=== PATIENT | female | born 1995 | race Hispanic/Latino ===

== ENCOUNTER 2018-05-03 17:57 | Emergency (ER) | payer OTHER, MEDICAID ==
[2018-05-03 18:16] VITALS: BP 121/74
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
[2018-05-03 19:28] LABS: Basophils % (Auto) 0.3 % (0.0-1.8); Eosinophils # (Auto) 0.1 K/mm3 (0.0-0.4); Eosinophils % (Auto) 0.7 % (0.0-4.3); Hematocrit 34.8 % (30.3-42.9); Hemoglobin 11.5 gm/dl (10.1-14.3); Lymphocytes # (Auto) 2.9 K/mm3 (1.2-5.4); Lymphocytes % (Auto) 18.2 % (13.4-35.0); Mean Corpuscular HGB Conc 33 % (30-34); Mean Corpuscular Hemoglobin 32 pg (28-32); Mean Corpuscular Volume 95 fl (79-97); Monocytes # (Auto) 0.7 K/mm3 (0.0-0.8); Monocytes % (Auto) 4.6 % (0.0-7.3); Platelet Count 269 K/mm3 (140-440); Red Blood Count 3.65 M/mm3 (3.65-5.03); Red Cell Distribution Width 13.3 % (13.2-15.2)
[2018-05-03 19:43] LABS: Alanine Aminotransferase 8 units/L (7-56); BUN/Creatinine Ratio 12; Blood Urea Nitrogen 6 mg/dL (7-17); Hemolysis Index 2; Lipase 23 units/L (13-60)
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
[2018-05-03 21:40] LABS: Bilirubin,Urine NEG (Negative); Blood,Urine NEG (Negative); Color,Urine Yellow (Yellow); Mucus,Urine FEW /HPF; Protein,Urine <15 mg/dL mg/dL (Negative); Urobilinogen,Urine < 2.0 mg/dL (<2.0)
== END 2018-05-03 22:30 | disposition home or self-care (01) ==
LOC: MERGE 17:57 → ED 17:57
DX: O26.892 Other specified pregnancy related conditions, second trimester (principal); R10.9 Unspecified abdominal pain; Z3A.22 22 weeks gestation of pregnancy; V89.2XXA Person injured in unspecified motor-vehicle accident, traffic, initial encounter; Y93.89 Activity, other specified; Y92.89 Other specified places as the place of occurrence of the external cause; Y99.8 Other external cause status
CPT/HCPCS: 36415; 76816; 80053; 81001; 83690; 85025; 99284

== ENCOUNTER 2020-06-12 00:41 | Inpatient (IN) | payer MEDICAID ==
[2020-06-12] MEDS ORDERED: LACTATED RINGERS 1,000 ML IV ONE (01:42)
[2020-06-12] MEDS ORDERED: BUTORPHANOL 2 MG/1 ML INJ IV PRN (02:29)
[2020-06-12] MEDS ORDERED: TERBUTALINE 1 MG/1 ML INJ SUB-Q PRN (02:29)
[2020-06-12] MEDS ORDERED: TERBUTALINE 1 MG/1 ML INJ IVP PRN (02:29)
[2020-06-12] MEDS ORDERED: LIDOCAINE (2%) 20 MG/1 ML VIAL 20 ML MDV INFILTRATI ONE (02:29)
[2020-06-12] MEDS ORDERED: ePHEDrine SULFATE 50 MG/1 ML INJ IV PRN (02:29)
[2020-06-12] MEDS ORDERED: PROMETHAZINE 25 MG TAB PO PRN (02:29)
[2020-06-12] MEDS ORDERED: OXYTOCIN 20 UNIT/1000ML DRIP 20 UNITS/1,000 ML BAG IV SCH (03:00)
[2020-06-12 03:42] LABS: Hematocrit 26.9 % (30.3-42.9); Hemoglobin 9.2 gm/dl (10.1-14.3); Mean Corpuscular HGB Conc 34 % (30-34); Mean Corpuscular Volume 90 fl (79-97); Platelet Count 265 K/mm3 (140-440); Red Blood Count 2.98 M/mm3 (3.65-5.03)
[2020-06-12] MEDS: LACTATED RINGERS 1,000 ML IV SCH ×2 (03:48→11:39)
[2020-06-12] MEDS: AMPICILLIN/NS 1 GM/50 ML 1 GM/50 ML BAG IV SCH ×3 (04:55→18:12)
--- NOTE | 2020-06-12 06:02 | Ultrasound Report ---
Examination: Ultrasound Obstetrical Limited, 06/12/2020 INDICATION: Evaluate presentation. COMPARISON: None FINDINGS: There is a single living intrauterine with the head in the cephalic position. The hea rt rate is 125 beats per minute. IMPRESSION: Limited obstetrical ultrasound as detailed above. Signer Name: Cailin Jefferson MD Signed: 06/12/2020 5:57 AM Workstation Name: [id number]
--- NOTE | 2020-06-12 09:07 | History and Physical Report ---
History of Present Illness Date of examination: 06/12/20 Date of admission: 06/12/20 03:11 History of present illness: Patient presents to labor and delivery with complaints of spontaneous rupture of membranes approximately 10 PM on June 11. Triage nurse states the patient was grossly ruptured on exam and she could not detect presenting parts. Patient underwent ultrasound which verified that was in vertex position. Initially the patient gave the triage nurse EDC that was made her 35 weeks but upon obtaining her records the patient is at 33 weeks.\ Menstrual History Regularity: regular Menses every: 30 days Duration: 5 LMP: 09/22/2019 LMP reliability: definite LMP character: normal test type: urine test BC at conception: none Planned ? no EDC Calculations LMP: 06/28/2020 EDC Confirmation: 07/29/2020 Vital Signs: Patient Profile: 24 Years Old Female LMP: 09/22/2019 Height: 63 inches Weight: BMI: 25.86 Temp: 97.8 degrees F Medications: Medications were reviewed with the patient during this visit. Allergies: Allergies were reviewed with the patient during this visit. No Known Allergy. Last MP: 09/22/2019 Past History : 2 Term Births: 1 Premature Births: 0 Living Children: 1 Para: 0 Mult. Births: 0 Prev : 0 Prev. attempt? 0 Aborta: 0 Elect. Ab: 0 Spont. Ab: 0 Ectopics: 0 # 1 Delivery date: 08/23/2018 Weeks Gestation: 39 Delivery type: Vaginal Anesthesia type: epidural Delivery location: [facility] Infant Sex: female weight: 6.19 Comments: none Past Medical History: Negative Past Medical History Past Surgical History: negative Family History Summary: Other Family Member - Has No Family History of Uterine Cancer - Entered On: 02/29/2020 Other Family Member - Has No Family History of Stomach Cancer - Entered On: 02/29/2020 Other Family Member - Has No Family History of Spontaneous DVT-PE - Entered On: 02/29/2020 Other Family Member - Has No Family History of Small Bowel Cancer - Entered On: 02/29/2020 Other Family Member - Has No Family History of Pancreatic Cancer - Entered On: 02/29/2020 Other Family Member - Has No Family History of Ovarvian Cancer - Entered On: 02/29/2020 Other Family Member - Has No Family History of Kidney/Urinary Tract Cancer - Entered On: 02/29/2020 Other Family Member - Has No Family History of Colon Cancer - Entered On: 02/29/2020 Other Family Member - Has No Family History of Breast Cancer - Entered On: 02/18 Other Family Member - Has No Family History of Brain Cancer - Entered On: 02/29/2020 Other Family Member - Has No Family History of Biliary Tract Cancer - Entered On: 02/29/2020 General Comments - FH: DM - MGM, MGF Social History: single not working no ETOH/drugs/smoking Smoking History: Patient has never smoked. Risk Factors: Smoked Tobacco Use: Never smoker Dietary Counseling: pn yes Previous Tobacco Use: Signed On 03/06/2018 Smoked Tobacco Use: Never smoker Smokeless Tobacco Use: Never Passive smoke exposure: no Drug use: no HIV high-risk behavior: no Caffeine use: 1 drinks per day Previous Alcohol Use: Signed On 03/06/2018 Alcohol use: no Exercise: no Seatbelt use: 100 % Family History Risk Factors: Family History of MD in females < 65 years old: no Family History of MD in males < 55 years old: no Dietary Counseling: pn yes PAP Smear History: Date of Last PAP Smear: 03/20/2018 Past Medical History Abnormal PAP: negative Social Hx: single not working no ETOH/drugs/smoking Smoking History: Patient has never smoked. Infection History Hx of STD: gonorrhea Varicella/Chicken Pox Status: Unknown TB Risk: no Genetic History Congenital Heart Defect: Mom: no Dad: no Deb Disease: Mom: no Dad: no Thalassemia Mom: no Dad: no Neural Tube Defect Mom: no Dad: no Down's Syndrome Mom: no Dad: no Brent-Sachs Mom: no Dad: no Sickle Cell Disease/Trait Mom: no Dad: no Hemophilia Mom: no Dad: no Muscular Dystrophy Mom: no Dad: no Cystic Fibrosis Mom: no Dad: no [place] Chorea Mom: no Dad: no Mental Retardation Mom: no Dad: no Fragile X Mom: no Dad: no Other Genetic/Chromosomal Disorder Mom: no Dad: no Child w/other defect Mom: no Dad: no Enviromental Exposures Enviromental Exposures Reviewed Xray Exposure: no Medication, drug, or alcohol use since LMP: no Chemical/Other Exposure: no Exposure to Cat Liter: no Hx of Parvovirus (Fifth Disease): no Occupational Exposure to Children: other Current Allergies (reviewed today): No known allergies Past History Past Medical History: other (See HPI) Past Surgical History: other (See HPI) CHIEF CONTROLLER History: other (See HPI) Family/Genetic History: other (See HPI) Social history: full code - Obstetrical History Expected Date of Delivery: 07/29/20 Actual Gestation: 33 Week(s) 2 Day(s) : 2 Para: 1 Hx # Term Pregnancies: 1 Number of Pregnancies: 0 Spontaneous Abortions: 0 Induced : 0 Number of Living Children: 1 Medications and Allergies Allergies Allergy/AdvReac Type Severity Reaction Status Date / Time No Known Allergies Allergy Verified 08/21/18 09:44 Home Medications Medication Instructions Recorded Confirmed Last Taken Type No Known Home Medications [No 06/12/20 06/12/20 Unknown History Reported Home Medications] Active Meds: Active Medications Butorphanol Tartrate (Stadol) 2 mg IV Q2H PRN PRN Reason: Pain , Severe (7-10) Ephedrine Sulfate (Ephedrine Sulfate) 10 mg IV Q2M PRN PRN Reason: Hypotension Oxytocin/Sodium Chloride (Pitocin/Ns 20 Unit/1000ml Drip) 20 units in 1,000 mls @ 125 mls/hr IV DIRECT JOSE Lactated Ringer's (Lactated Ringers) 1,000 mls @ 125 mls/hr IV DIRECT JOSE Last Admin: 06/12/20 03:48 Dose: 125 mls/hr Documented by: Ampicillin Sodium (Ampicillin/Ns 1 Gm/50 Ml) 1 gm in 50 mls @ 100 mls/hr IV Q4HR JOSE; Protocol Last Admin: 06/12/20 04:55 Dose: 100 mls/hr Documented by: Promethazine HCl (Phenergan) 25 mg PO Q6H PRN PRN Reason: Nausea And Vomiting Terbutaline Sulfate (Brethine) 0.25 mg SUB-Q ONCE PRN PRN Reason: Hyperstimulation/Hypertonicity Terbutaline Sulfate (Brethine) 0.25 mg IVP ONCE PRN PRN Reason: Hyperstimulation/Hypertonicity - Vital Signs Vital signs: Vital Signs Pulse BP Pulse Ox 82 115/56 98 06/12/20 01:30 06/12/20 01:30 06/12/20 01:30 Temp Pulse Resp BP Pulse Ox 98.3 F 68 16 128/61 100 06/12/20 03:15 08/23/20 04:55 06/12/20 03:15 06/12/20 03:17 06/12/20 04:55 - Physical Exam Breasts: Positive: deferred Cardiovascular: Regular rate Lungs: Positive: Normal air movement Abdomen: Positive: normal appearance, soft Cervix: Positive: other (Per RN) Uterus: Positive: enlarged - Obstetrical FHR: category 1 Results Result Diagrams: 06/12/20 03:10 Abnormal lab results 06/12/20 Range/Units 03:10 WBC 12.4 H (4.5-11.0) K/mm3 RBC 2.98 L (3.65-5.03) M/mm3 Hgb 9.2 L (10.1-14.3) gm/dl Hct 26.9 L (30.3-42.9) % RDW 13.0 L (13.2-15.2) % All other labs normal. Assessment and Plan - Patient Problems (1) premature rupture of membranes Current Visit: Yes Status: Acute Qualifiers: PROM onset of labor timing: unspecified duration between rupture of membranes and onset of labor Qualified Code(s): O42.919 - premature rupture of membranes, unspecified as to length of time between rupture and onset of labor, unspecified trimester Plan to address problem: Patient is presently without contractions with stable vital signs and afebrile. Discussed the diagnosis with the patient. Discussed the risks of premature delivery including lung immaturity also discussed the benefits of expectant management. Discussed indications for induction of labor include signs of infection maternal and indications. We will have consultation with the NICU patient. Will give BMZ and continue expectant management for the present
--- NOTE | 2020-06-12 18:15 | Consultation ---
Consult Note - Parent Education I met with parent(s) and discussed the following:: Need for NICU admission, Poss ible need for intubation and surfactant or other resp support, Temperature regulation, Possible need for IV fluids/TPN and IV antibiotics, Possible need for umbilical lines, Importance of providing breast milk & encouraged pumping aft delivery (Mother expressed interest in EBM, DBM), Donor breast milk if baby meets criteria after , Slow feeding advancement and monitoring of tolerance. NG/OG feeds, Need to monitor for jaundice, Data for survival & survival without significant co-morbidities Parent(s) demonstrated understanding of all the information:: Yes Assessment and Plan - Assessment Gestation:: 33 (33 2/7 weeker) Estimated Weight: 1871grams Baby's gender: Female Baby's name: Jany - Plan Plan: Agree with Mag & steroids Will attend delivery Please call NICU with questions
[2020-06-12] MEDS: BETAMET ACET/BETAMET NA PH 6 MG/ML INJ 5 ML MDV IM SCH (20:12)
[2020-06-13] MEDS: LACTATED RINGERS 1,000 ML IV SCH ×3 (01:20→19:20)
[2020-06-13] MEDS: AMPICILLIN/NS 1 GM/50 ML 1 GM/50 ML BAG IV SCH ×6 (02:20→22:10)
--- NOTE | 2020-06-13 05:17 | Event Note ---
Date: 06/13/20 Telephone reports from RN Patient stable afebrile rare contractions Patient did have an ultrasound with decreased DAVID 3cm BPP 03/28 ( 2 off for breathing motion). Appreciated NICU consult. Will continue present management
--- NOTE | 2020-06-13 07:37 | Progress Note ---
Assessment and Plan A: 25 y.o. @ 33.3 wks with SROM, stable with one contraction X 1 in last 30 minutes. P: Start magnesium infusion. Continue to monitor maternal and status. Subjective - Subjective Date of service: 06/13/20 (Pt states not feeling contractions) Principal diagnosis: IUP @ 33.3 wks with SROM Objective - Vital Signs Vital Signs: Vital Signs - 12hr 06/12/20 06/12/20 06/12/20 19:44 20:14 20:22 Temperature Pulse Rate 72 82 75 Respiratory Rate Blood Pressure 83/44 84/47 90/51 06/12/20 06/12/20 06/12/20 20:44 21:14 21:44 Temperature Pulse Rate 78 75 86 Respiratory Rate Blood Pressure 109/56 118/64 120/60 06/12/20 06/12/20 06/12/20 22:14 22:44 23:14 Temperature Pulse Rate 73 77 90 Respiratory Rate Blood Pressure 115/61 104/57 111/65 06/12/20 06/13/20 06/13/20 23:44 00:14 00:47 Temperature Pulse Rate 90 88 77 Respiratory Rate Blood Pressure 95/61 90/55 81/42 06/13/20 06/13/20 06/13/20 00:58 01:20 01:44 Temperature 98.5 F Pulse Rate 76 96 H Respiratory 18 Rate Blood Pressure 109/54 106/64 06/13/20 06/13/20 06/13/20 02:14 02:44 03:14 Temperature Pulse Rate 75 68 102 H Respiratory Rate Blood Pressure 104/56 102/55 96/54 06/13/20 06/13/20 06/13/20 03:44 04:14 04:44 Temperature Pulse Rate 107 H 76 104 H Respiratory Rate Blood Pressure 99/55 87/42 85/49 06/13/20 06/13/20 06/13/20 05:14 05:44 06:15 Temperature Pulse Rate 71 90 81 Respiratory Rate Blood Pressure 99/56 102/62 104/56 06/13/20 06/13/20 06:44 07:15 Temperature Pulse Rate 86 95 H Respiratory Rate Blood Pressure 94/54 110/59 - Exam Narrative Exam: Pt states that she is doing well and not feeling any contractions. One contraction X 1 in last 30 minutes. Explained to patient that magnesium infusion will be started today because it is to protect the baby's neurological system. Also discussed that she will need a Partida catheter and she will not be able to get out of bed at that time. Pt verbalized understanding and agreed to plan of care. Breasts: deferred Cardiovascular: Regular rate Lungs: Normal air movement Abdomen: Present: normal appearance, soft Vulva: both: normal Uterus: Present: normal FHR: category 1 Uterine Contraction Monitor Mode: External Uterine Contraction Pattern: Irregular (Contraction X 1 in 30 minutes) Uterine Tone Measurement Phase: Resting Uterine Contraction Intensity: Mild Extremities: normal Deep Tendon Reflex Grade: Normal +2 - Labs Labs: Abnormal Labs 06/12/20 03:10 WBC 12.4 H RBC 2.98 L Hgb 9.2 L Hct 26.9 L RDW 13.0 L
[2020-06-13] MEDS ORDERED: MAGNESIUM SULFATE 40GM/1000ML 40 GM/1,000 ML BAG IV SCH (08:00)
--- NOTE | 2020-06-13 08:16 | Ultrasound Report ---
ULTRASOUND BIOPHYSICAL PROFILE INDICATION: wellness. COMPARISON: None available. FINDINGS: breathing movement = 0 Gross body movement = 2 tone = 2 Qualitative amniotic fluid volume = 2 Total biophysical score = 6/8 Amniotic fluid index is 3.9 cm. Presentation is Cephalic. heart rate is 160 beats per minute. IMPRESSION: biophysical profile = 6/8 OBSTETRIC ULTRASOUND INDICATION: wellness COMPARISON: No prior relevant imaging studies are available for comparison. TECHNIQUE: Transabdominal imaging was performed. FINDINGS: Single viable intrauterine is identified. lie: vertex. Heart rate: 160 bpm. measurements are as follows: Biparietal diameter 8.4 cm, 34 weeks 0 days Head circumference 29.9 cm, 33 weeks 1 day Abdominal circumference 26.5 cm, 30 weeks 4 days Femur length 6.4 cm, 33 weeks 2 days Amniotic fluid index is 3.9 cm, below normal. No placental abnormalities are seen. Cervical length i s 4-5 cm. CONCLUSION: 1. Head circumference is measuring 3 weeks greater than abdominal circumference. This could impact de livery planning and can also be seen in the setting of IUGR. 2. Low DAVID. Signer Name: Jaun Pyle MD Signed: 06/12/2020 7:18 PM Workstation Name: [id number]
--- NOTE | 2020-06-13 08:45 | Event Note ---
Date: 06/13/20 Agree with tunnel man exam and note. Pt having irregular contractions but not feeling them. Magnesium sulfate this am and will continue until 24 hour after second dose of steroids. Second dose of steroids due this pm.
[2020-06-13] MEDS: BETAMET ACET/BETAMET NA PH 6 MG/ML INJ 5 ML MDV IM SCH (20:30)
[2020-06-14] MEDS: AMPICILLIN/NS 1 GM/50 ML 1 GM/50 ML BAG IV SCH ×2 (02:10→06:00)
--- NOTE | 2020-06-14 06:39 | Progress Note ---
<KAT MONDRAGON - Last Filed: 06/14/20 06:42> Assessment and Plan 25yo @ 33w4d with PPROM Completed BMZ and continues to receive ABX IVPB Continue POC. Will consult with Dr Rodrigues - Patient Problems (1) premature rupture of membranes Onset Date: ~06/14/20 Current Visit: Yes Status: Acute Qualifiers: PROM onset of labor timing: unspecified duration between rupture of membranes and onset of labor Qualified Code(s): O42.919 - premature rupture of membranes, unspecified as to length of time between rupture and onset of labor, unspecified trimester Plan to address problem: BMZ completed; ABX continued Will consult @ chging to po antibiotics (2) 33 weeks gestation of Onset Date: ~06/14/20 Current Visit: Yes Status: Acute Plan to address problem: BMZ completed. MGSO4 off @ 1850 06/13/2020. Subjective - Subjective Date of service: 06/14/20 (pt sleeping soundly; no c/o voiced) Principal diagnosis: IUP @ 33.4 wks with PPROM; BMZ complete; ABX continue Patient reports: new complaints, movement normal Objective - Vital Signs Vital Signs: Vital Signs - 12hr 06/13/20 06/13/20 06/13/20 18:37 19:00 19:02 Temperature 98.0 F Pulse Rate 97 H 141 H 88 Blood Pressure 116/64 O2 Sat by Pulse 99 84 Oximetry 06/13/20 06/13/20 06/13/20 21:59 22:00 22:04 Temperature 98.2 F Pulse Rate 73 182 H Blood Pressure O2 Sat by Pulse 78 L 78 L Oximetry 06/13/20 06/13/20 06/13/20 22:11 22:17 22:20 Temperature Pulse Rate 104 H 165 H Blood Pressure O2 Sat by Pulse 87 94 89 Oximetry 06/13/20 06/13/20 06/13/20 22:22 22:27 22:32 Temperature Pulse Rate 185 H Blood Pressure O2 Sat by Pulse 92 89 90 Oximetry 06/13/20 06/13/20 06/13/20 22:38 22:43 22:46 Temperature Pulse Rate 198 H Blood Pressure O2 Sat by Pulse 92 94 90 Oximetry 06/13/20 06/13/20 06/13/20 22:49 22:51 22:54 Temperature Pulse Rate 169 H Blood Pressure O2 Sat by Pulse 94 85 91 Oximetry 06/13/20 06/13/20 06/13/20 23:00 23:02 23:07 Temperature Pulse Rate 71 195 H 90 Blood Pressure O2 Sat by Pulse 0 L 82 L 98 Oximetry 06/13/20 06/13/20 06/13/20 23:12 23:17 23:22 Temperature Pulse Rate 91 H 92 H 91 H Blood Pressure O2 Sat by Pulse 98 98 98 Oximetry 06/13/20 06/13/20 06/13/20 23:27 23:32 23:37 Temperature Pulse Rate 86 89 95 H Blood Pressure O2 Sat by Pulse 98 98 98 Oximetry 06/13/20 06/13/20 06/13/20 23:42 23:47 23:52 Temperature Pulse Rate 85 84 86 Blood Pressure O2 Sat by Pulse 98 99 98 Oximetry 06/13/20 06/14/20 06/14/20 23:57 00:00 00:02 Temperature 98.3 F Pulse Rate 85 92 H Blood Pressure O2 Sat by Pulse 98 98 Oximetry 06/14/20 06/14/20 06/14/20 00:07 00:12 00:17 Temperature Pulse Rate 84 85 94 H Blood Pressure O2 Sat by Pulse 97 98 96 Oximetry 06/14/20 06/14/20 06/14/20 00:22 00:27 00:32 Temperature Pulse Rate 93 H 96 H 87 Blood Pressure O2 Sat by Pulse 98 99 97 Oximetry 06/14/20 06/14/20 06/14/20 00:37 00:42 00:47 Temperature Pulse Rate 93 H 86 93 H Blood Pressure O2 Sat by Pulse 97 97 97 Oximetry 06/14/20 06/14/20 06/14/20 00:52 00:57 01:02 Temperature Pulse Rate 91 H 90 93 H Blood Pressure O2 Sat by Pulse 97 97 97 Oximetry 06/14/20 06/14/20 06/14/20 01:07 01:12 01:17 Temperature Pulse Rate 101 H 91 H 88 Blood Pressure O2 Sat by Pulse 97 98 98 Oximetry 06/14/20 06/14/20 06/14/20 01:22 01:27 01:32 Temperature Pulse Rate 96 H 86 94 H Blood Pressure O2 Sat by Pulse 98 97 98 Oximetry 06/14/20 06/14/2006/14/20 01:37 01:42 01:47 Temperature Pulse Rate 88 82 89 Blood Pressure O2 Sat by Pulse 98 98 97 Oximetry 06/14/20 06/14/20 06/14/20 01:52 01:57 02:00 Temperature 98.1 F Pulse Rate 85 85 Blood Pressure O2 Sat by Pulse 97 96 Oximetry 06/14/20 06/14/20 06/14/20 02:02 02:07 02:12 Temperature Pulse Rate 85 84 92 H Blood Pressure O2 Sat by Pulse 96 96 96 Oximetry 06/14/20 06/14/20 06/14/20 02:17 02:22 02:27 Temperature Pulse Rate 85 81 77 Blood Pressure O2 Sat by Pulse 96 96 97 Oximetry 06/14/20 06/14/20 06/14/20 02:32 02:37 02:42 Temperature Pulse Rate 79 81 81 Blood Pressure O2 Sat by Pulse 98 97 97 Oximetry 06/14/20 06/14/20 06/14/20 02:47 02:52 02:57 Temperature Pulse Rate 84 82 81 Blood Pressure O2 Sat by Pulse 98 96 97 Oximetry 06/14/20 06/14/20 06/14/20 03:02 03:07 03:12 Temperature Pulse Rate 79 72 82 Blood Pressure O2 Sat by Pulse 97 97 97 Oximetry 06/14/20 06/14/20 06/14/20 03:17 03:22 03:27 Temperature Pulse Rate 79 78 80 Blood Pressure O2 Sat by Pulse 97 97 97 Oximetry 06/14/20 06/14/20 06/14/20 03:32 03:37 03:42 Temperature Pulse Rate 83 81 84 Blood Pressure O2 Sat by Pulse 97 98 98 Oximetry 06/14/20 06/14/20 06/14/20 03:47 03:52 03:57 Temperature Pulse Rate 85 96 H 80 Blood Pressure O2 Sat by Pulse 98 98 98 Oximetry 06/14/20 06/14/20 06/14/20 04:00 04:02 04:07 Temperature 98.4 F Pulse Rate 74 70 Blood Pressure O2 Sat by Pulse 98 99 Oximetry 06/14/20 06/14/20 06/14/20 04:12 04:17 04:22 Temperature Pulse Rate 86 74 71 Blood Pressure O2 Sat by Pulse 99 99 98 Oximetry 06/14/20 06/14/20 06/14/20 04:27 04:32 04:37 Temperature Pulse Rate 76 80 79 Blood Pressure O2 Sat by Pulse 98 98 98 Oximetry 06/14/20 06/14/20 06/14/20 04:42 04:47 04:52 Temperature Pulse Rate 86 82 83 Blood Pressure O2 Sat by Pulse 97 97 97 Oximetry 06/14/20 06/14/20 06/14/20 04:57 05:02 05:07 Temperature Pulse Rate 79 80 85 Blood Pressure O2 Sat by Pulse 97 97 97 Oximetry 06/14/20 06/14/20 06/14/20 05:12 05:17 05:22 Temperature Pulse Rate 78 85 82 Blood Pressure O2 Sat by Pulse 97 96 97 Oximetry 06/14/20 06/14/20 06/14/20 05:27 05:32 05:37 Temperature Pulse Rate 82 85 82 Blood Pressure O2 Sat by Pulse 97 97 96 Oximetry 06/14/20 06/14/20 06/14/20 05:42 05:47 05:52 Temperature Pulse Rate 88 86 89 Blood Pressure O2 Sat by Pulse 97 97 98 Oximetry 06/14/20 06/14/20 06/14/20 05:57 06:00 06:02 Temperature 98.1 F Pulse Rate 80 73 Blood Pressure O2 Sat by Pulse 97 96 Oximetry 06/14/20 06/14/20 06/14/20 06:07 06:12 06:17 Temperature Pulse Rate 79 78 85 Blood Pressure O2 Sat by Pulse 96 96 96 Oximetry 06/14/20 06/14/20 06/14/20 06:22 06:27 06:32 Temperature Pulse Rate 98 H 71 74 Blood Pressure O2 Sat by Pulse 98 98 98 Oximetry - Exam Breasts: deferred Cardiovascular: Regular rate Lungs: Normal air movement Abdomen: Present: normal appearance, soft. Absent: distention, tenderness Uterus: Present: normal FHR: auscultation normal, category 1 Uterine Contraction Monitor Mode: External Uterine Contraction Pattern: Absent Uterine Tone Measurement Phase: Resting Extremities: normal Deep Tendon Reflex Grade: Normal +2 - Labs Labs: Abnormal Labs 06/12/20 06/13/20 03:10 14:06 WBC 12.4 H RBC 2.98 L Hgb 9.2 L Hct 26.9 L RDW 13.0 L Magnesium 4.70 H Laboratory Results - last 24 hr 06/13/20 06/14/20 14:06 04:10 Magnesium 4.70 H Syphilis IgG Antibody Nonreactive <ANA RODRIGUES D - Last Filed: 06/14/20 21:06> Assessment and Plan Patient resting in bed, no complaints. Plan of care reviewed. Questions encouraged and answered. Objective - Vital Signs Vital Signs: Vital Signs - 12hr 06/14/20 06/14/20 06/14/20 09:07 09:12 09:17 Temperature Pulse Rate 83 94 H 111 H Respiratory Rate Blood Pressure O2 Sat by Pulse 100 100 100 Oximetry 06/14/20 06/14/20 06/14/20 09:22 09:27 09:32 Temperature Pulse Rate 97 H 109 H 92 H Respiratory Rate Blood Pressure O2 Sat by Pulse 100 100 100 Oximetry 06/14/20 06/14/20 06/14/20 09:34 09:37 09:42 Temperature Pulse Rate 95 H 97 H 96 H Respiratory Rate Blood Pressure O2 Sat by Pulse 93 99 100 Oximetry 06/14/20 06/14/20 06/14/20 09:47 09:52 09:57 Temperature Pulse Rate 86 90 84 Respiratory Rate Blood Pressure O2 Sat by Pulse 100 99 100 Oximetry 06/14/20 06/14/20 06/14/20 10:02 10:07 10:12 Temperature Pulse Rate 86 80 86 Respiratory Rate Blood Pressure O2 Sat by Pulse 100 99 100 Oximetry 06/14/20 06/14/20 06/14/20 10:17 10:22 10:27 Temperature Pulse Rate 85 85 86 Respiratory Rate Blood Pressure O2 Sat by Pulse 99 98 98 Oximetry 06/14/20 06/14/20 06/14/20 10:32 10:37 10:42 Temperature Pulse Rate 97 H 91 H 100 H Respiratory Rate Blood Pressure O2 Sat by Pulse 99 98 98 Oximetry 06/14/20 06/14/20 06/14/20 10:47 11:50 12:11 Temperature 98.4 F Pulse Rate 86 88 Respiratory Rate Blood Pressure 113/58 O2 Sat by Pulse 98 Oximetry 06/14/20 06/14/20 06/14/20 12:46 13:46 14:42 Temperature 98.3 F Pulse Rate 97 H 89 Respiratory Rate Blood Pressure 118/59 112/66 O2 Sat by Pulse Oximetry 06/14/20 06/14/20 06/14/20 15:46 16:46 17:30 Temperature 98.7 F Pulse Rate 82 90 Respiratory Rate Blood Pressure 111/59 119/56 O2 Sat by Pulse Oximetry 06/14/20 06/14/20 06/14/20 17:46 18:47 19:47 Temperature Pulse Rate 93 H 80 86 Respiratory Rate Blood Pressure 114/56 118/56 116/53 O2 Sat by Pulse Oximetry 06/14/20 06/14/20 20:45 20:51 Temperature 98.3 F Pulse Rate 84 Respiratory 18 Rate Blood Pressure 103/53 O2 Sat by Pulse Oximetry - Labs Labs: Abnormal Labs 06/12/20 06/13/20 03:10 14:06 WBC 12.4 H RBC 2.98 L Hgb 9.2 L Hct 26.9 L RDW 13.0 L Magnesium 4.70 H Laboratory Results - last 24 hr 06/14/20 04:10 Syphilis IgG Antibody Nonreactive
[2020-06-14] MEDS ORDERED: ACETAMINOPHEN 325 MG TAB PO PRN (08:00)
[2020-06-14] MEDS ORDERED: DOCUSATE SODIUM 100 MG CAP PO PRN (08:00)
[2020-06-14] MEDS: LACTATED RINGERS 1,000 ML IV SCH (08:13)
[2020-06-14] MEDS: ERYTHROMYCIN LACTOBIONATE 250 MG in SODIUM CHLORIDE 0.9% 100 ML IV SCH ×3 (08:34→21:40)
[2020-06-14] MEDS: PRENATAL VIT27-FE FUMARATE-FOLIC ACID VIT TAB PO SCH (09:23)
[2020-06-14] MEDS: AMOXICILLIN 250 MG CAP PO SCH ×3 (09:23→22:23)
[2020-06-15] MEDS: AMOXICILLIN 250 MG CAP PO SCH ×3 (06:08→22:03)
--- NOTE | 2020-06-15 07:34 | Progress Note ---
Assessment and Plan patient resting, no complaints. abd palpated soft/nontender. no foul smelling fluid. VSSAF. - Patient Problems (1) 33 weeks gestation of Onset Date: ~06/14/20 Current Visit: Yes Status: Acute (2) premature rupture of membranes Onset Date: ~06/14/20 Current Visit: Yes Status: Acute Qualifiers: PROM onset of labor timing: unspecified duration between rupture of membranes and onset of labor Qualified Code(s): O42.919 - premature rupture of membranes, unspecified as to length of time between rupture and onset of labor, unspecified trimester Plan to address problem: continue current plan of care monitor for s/s infection or distress Subjective - Subjective Date of service: 06/15/20 Principal diagnosis: IUP @ 33.5 wks with PPROM; BMZ complete; ABX continue Patient reports: new complaints, movement normal Objective - Vital Signs Vital Signs: Vital Signs - 12hr 06/14/20 06/14/20 06/14/20 19:47 20:45 20:51 Temperature 98.3 F Pulse Rate 86 84 Respiratory 18 Rate Blood Pressure 116/53 103/53 06/14/20 06/14/20 06/14/20 21:46 22:46 23:46 Temperature Pulse Rate 116 H 84 73 Respiratory Rate Blood Pressure 117/57 121/56 86/46 06/15/20 06/15/20 06/15/20 00:04 00:32 00:46 Temperature 98.3 F Pulse Rate 78 82 Respiratory 18 Rate Blood Pressure 91/50 107/58 06/15/20 06/15/20 06/15/20 01:46 02:46 03:46 Temperature Pulse Rate 101 H 74 67 Respiratory Rate Blood Pressure 106/58 102/55 101/56 06/15/20 06/15/20 06/15/20 04:00 04:46 05:46 Temperature 98.1 F Pulse Rate 70 70 Respiratory 18 Rate Blood Pressure 119/56 88/43 06/15/20 06:47 Temperature Pulse Rate 77 Respiratory Rate Blood Pressure 90/52 - Exam Breasts: normal Cardiovascular: Regular rate Lungs: Normal air movement Abdomen: Present: normal appearance, soft. Absent: tenderness, guarding Vulva: both: normal Uterus: Present: normal, fundal height above umbilicus FHR: auscultation normal, category 1 Uterine Contraction Monitor Mode: External Uterine Contraction Pattern: Absent Uterine Tone Measurement Phase: Resting Extremities: normal Deep Tendon Reflex Grade: Normal +2 - Labs Labs: Abnormal Labs 06/12/20 06/13/20 03:10 14:06 WBC 12.4 H RBC 2.98 L Hgb 9.2 L Hct 26.9 L RDW 13.0 L Magnesium 4.70 H
[2020-06-15] MEDS: ERYTHROMYCIN LACTOBIONATE 250 MG in SODIUM CHLORIDE 0.9% 100 ML IV SCH ×3 (08:27→22:04)
[2020-06-15] MEDS: LACTATED RINGERS 1,000 ML IV SCH ×2 (12:59→23:43)
[2020-06-15 16:02] LABS: Basophils % (Auto) 0.2 % (0.0-1.8); Eosinophils % (Auto) 0.1 % (0.0-4.3); Hematocrit 23.7 % (30.3-42.9); Hemoglobin 7.9 gm/dl (10.1-14.3); Lymphocytes # (Auto) 2.2 K/mm3 (1.2-5.4); Lymphocytes % (Auto) 11.6 % (13.4-35.0); Mean Corpuscular HGB Conc 34 % (30-34); Mean Corpuscular Volume 90 fl (79-97); Monocytes # (Auto) 0.9 K/mm3 (0.0-0.8); Monocytes % (Auto) 4.7 % (0.0-7.3); Platelet Count 248 K/mm3 (140-440); Red Blood Count 2.65 M/mm3 (3.65-5.03); Red Cell Distribution Width 13.5 % (13.2-15.2)
[2020-06-15] MEDS ORDERED: ZOLPIDEM 5 MG TAB PO ONE ×2 (16:41→23:45)
[2020-06-15] MEDS: FERROUS SULFATE 325 MG TAB PO SCH (22:03)
[2020-06-16] MEDS: LACTATED RINGERS 1,000 ML IV SCH ×3 (03:53→19:44)
[2020-06-16] MEDS: ERYTHROMYCIN LACTOBIONATE 250 MG in SODIUM CHLORIDE 0.9% 100 ML IV SCH ×2 (03:55→10:30)
[2020-06-16] MEDS: AMOXICILLIN 250 MG CAP PO SCH ×3 (06:58→22:28)
--- NOTE | 2020-06-16 07:19 | Progress Note ---
Assessment and Plan A: IUP @ 33.6 today PPROM since 06/14/2020. Relaxed fundus and nontender abdomen. Lungs clear. Cat I tracing. VS stable, alert, afebrile, Elevated WBC's P: Continuous monitoring, Continue monitoring for signs of labor Repeat CBC with Diff within 12-24 hrs or if afebrile or vaginal odor Continue current Abx regimen Alert care providers of contractions VS per unit protocol Temp q 2 hrs and prn Regular diet Educated patient on s/s of infection (tender abdomen, foul vaginal odor, fever/chills) Nicu consult placed and Locator Specialist will speak with her about care after delivery Consult with Dr. Mcallister about poc or any changes - Patient Problems (1) premature rupture of membranes Onset Date: ~06/14/20 Current Visit: Yes Status: Acute Qualifiers: PROM onset of labor timing: unspecified duration between rupture of membranes and onset of labor Qualified Code(s): O42.919 - premature rupture of membranes, unspecified as to length of time between rupture and onset of labor, unspecified trimester (2) 33 weeks gestation of Onset Date: ~06/14/20 Current Visit: Yes Status: Acute Subjective - Subjective Date of service: 06/16/20 (Contractions q 30 mins- 1 hr) Principal diagnosis: IUP @ 33.6 wks with PPROM(2200 on 06-11-20); BMZ complete; ABX continue Patient reports: new complaints (Contractions every 30 minutes that are getting stronger), movement normal, contractions Objective - Vital Signs Vital Signs: Vital Signs - 12hr 06/15/20 06/15/20 06/15/20 19:15 19:18 19:20 Temperature Pulse Rate 98 H 86 89 Respiratory Rate Blood Pressure 130/58 O2 Sat by Pulse 99 98 Oximetry 06/15/20 06/15/20 06/15/20 19:25 19:30 19:32 Temperature 98.3 F Pulse Rate 85 84 Respiratory 17 Rate Blood Pressure O2 Sat by Pulse 98 98 Oximetry 06/15/20 06/15/20 06/15/20 19:35 19:40 19:45 Temperature Pulse Rate 94 H 87 99 H Respiratory Rate Blood Pressure O2 Sat by Pulse 99 100 98 Oximetry 06/15/20 06/15/20 06/15/20 19:50 19:55 20:00 Temperature Pulse Rate 83 77 81 Respiratory Rate Blood Pressure O2 Sat by Pulse 100 100 99 Oximetry 06/15/20 06/15/20 06/15/20 20:05 20:10 20:15 Temperature Pulse Rate 86 89 83 Respiratory Rate Blood Pressure O2 Sat by Pulse 99 99 99 Oximetry 06/15/20 06/15/20 06/15/20 20:20 20:25 20:30 Temperature Pulse Rate 84 81 80 Respiratory Rate Blood Pressure O2 Sat by Pulse 99 99 99 Oximetry 06/15/20 06/15/20 06/15/20 20:35 20:37 20:42 Temperature Pulse Rate 84 83 Respiratory Rate Blood Pressure O2 Sat by Pulse 98 86 85 Oximetry 06/15/20 06/15/20 06/15/20 20:45 20:48 20:52 Temperature Pulse Rate 92 H 107 H 81 Respiratory Rate Blood Pressure O2 Sat by Pulse 81 L 91 98 Oximetry 06/15/20 06/15/20 06/15/20 21:34 21:39 21:44 Temperature Pulse Rate 79 77 70 Respiratory Rate Blood Pressure O2 Sat by Pulse 98 98 98 Oximetry 06/15/20 06/15/20 06/15/20 21:46 21:49 21:54 Temperature Pulse Rate 67 69 66 Respiratory Rate Blood Pressure 110/55 O2 Sat by Pulse 99 99 Oximetry 06/15/20 06/15/20 06/15/20 21:59 22:00 22:04 Temperature 97.8 F Pulse Rate 76 81 Respiratory 18 Rate Blood Pressure O2 Sat by Pulse 99 99 Oximetry 06/15/20 06/15/20 06/15/20 22:09 22:14 22:19 Temperature Pulse Rate 62 65 73 Respiratory Rate Blood Pressure O2 Sat by Pulse 100 100 100 Oximetry 06/15/20 06/15/20 06/15/20 22:24 22:29 22:34 Temperature Pulse Rate 75 63 73 Respiratory Rate Blood Pressure O2 Sat by Pulse 99 99 100 Oximetry 06/15/20 06/15/20 06/15/20 22:39 22:44 22:47 Temperature Pulse Rate 68 70 66 Respiratory Rate Blood Pressure 101/56 O2 Sat by Pulse 100 99 Oximetry 06/15/20 06/15/20 06/15/20 22:49 22:51 22:57 Temperature Pulse Rate 75 65 80 Respiratory Rate Blood Pressure O2 Sat by Pulse 98 81 L 83 L Oximetry 06/15/20 06/15/20 06/15/20 23:04 23:05 23:10 Temperature Pulse Rate 66 78 Respiratory Rate Blood Pressure O2 Sat by Pulse 83 L 97 97 Oximetry 06/15/20 06/15/20 06/15/20 23:15 23:20 23:25 Temperature Pulse Rate 69 70 69 Respiratory Rate Blood Pressure O2 Sat by Pulse 98 98 100 Oximetry 06/15/20 06/15/20 06/15/20 23:30 23:35 23:40 Temperature Pulse Rate 75 68 72 Respiratory Rate Blood Pressure O2 Sat by Pulse 98 100 99 Oximetry 06/15/20 06/15/20 06/15/20 23:45 23:50 23:55 Temperature Pulse Rate 70 86 72 Respiratory Rate Blood Pressure O2 Sat by Pulse 98 98 99 Oximetry 06/16/20 06/16/20 06/16/20 00:00 00:05 00:10 Temperature Pulse Rate 73 75 73 Respiratory Rate Blood Pressure O2 Sat by Pulse 99 99 98 Oximetry 06/16/20 06/16/20 06/16/20 00:15 00:20 00:25 Temperature Pulse Rate 75 83 87 Respiratory Rate Blood Pressure O2 Sat by Pulse 98 98 96 Oximetry 06/16/20 06/16/20 06/16/20 00:26 00:30 00:34 Temperature Pulse Rate 88 77 81 Respiratory Rate Blood Pressure 118/67 O2 Sat by Pulse 87 99 Oximetry 06/16/20 06/16/20 06/16/20 00:35 00:40 00:45 Temperature Pulse Rate 76 78 77 Respiratory Rate Blood Pressure 117/66 O2 Sat by Pulse 98 98 98 Oximetry 06/16/20 06/16/20 06/16/20 00:50 00:55 01:00 Temperature Pulse Rate 73 82 90 Respiratory Rate Blood Pressure O2 Sat by Pulse 98 99 97 Oximetry 06/16/20 06/16/20 06/16/20 01:05 01:10 01:15 Temperature Pulse Rate 77 70 133 H Respiratory Rate Blood Pressure O2 Sat by Pulse 97 98 87 Oximetry 06/16/20 06/16/20 06/16/20 01:19 01:20 01:24 Temperature Pulse Rate 176 H 37 L 68 Respiratory Rate Blood Pressure O2 Sat by Pulse 85 81 L 99 Oximetry 06/16/20 06/16/20 06/16/20 01:29 01:34 01:39 Temperature Pulse Rate 77 83 71 Respiratory Rate Blood Pressure O2 Sat by Pulse 98 99 98 Oximetry 06/16/20 06/16/20 06/16/20 01:44 01:49 01:54 Temperature Pulse Rate 67 71 71 Respiratory Rate Blood Pressure O2 Sat by Pulse 97 98 98 Oximetry 06/16/20 06/16/20 06/16/20 01:59 02:04 02:09 Temperature Pulse Rate 68 74 73 Respiratory Rate Blood Pressure O2 Sat by Pulse 99 98 98 Oximetry 06/16/20 06/16/20 06/16/20 02:14 02:19 02:24 Temperature Pulse Rate 72 72 73 Respiratory Rate Blood Pressure O2 Sat by Pulse 97 97 97 Oximetry 06/16/20 06/16/20 06/16/20 02:29 02:34 02:39 Temperature Pulse Rate 73 74 72 Respiratory Rate Blood Pressure O2 Sat by Pulse 97 97 97 Oximetry 06/16/20 06/16/20 06/16/20 02:44 02:49 02:54 Temperature Pulse Rate 76 61 71 Respiratory Rate Blood Pressure O2 Sat by Pulse 97 97 97 Oximetry 06/16/20 06/16/20 06/16/20 02:59 03:12 03:17 Temperature Pulse Rate 73 47 L 60 Respiratory Rate Blood Pressure O2 Sat by Pulse 98 96 98 Oximetry 06/16/20 06/16/20 06/16/20 03:22 03:27 03:32 Temperature Pulse Rate 66 63 71 Respiratory Rate Blood Pressure O2 Sat by Pulse 98 98 98 Oximetry 06/16/20 06/16/20 06/16/20 03:37 03:42 03:47 Temperature Pulse Rate 67 62 64 Respiratory Rate Blood Pressure O2 Sat by Pulse 98 99 97 Oximetry 06/16/20 06/16/20 06/16/20 03:52 03:57 04:02 Temperature Pulse Rate 63 61 75 Respiratory Rate Blood Pressure O2 Sat by Pulse 97 97 97 Oximetry 06/16/20 06/16/20 06/16/20 04:07 04:12 04:17 Temperature Pulse Rate 61 65 70 Respiratory Rate Blood Pressure O2 Sat by Pulse 98 98 98 Oximetry 06/16/20 06/16/20 06/16/20 04:22 04:27 04:32 Temperature Pulse Rate 63 67 72 Respiratory Rate Blood Pressure O2 Sat by Pulse 98 98 98 Oximetry 06/16/20 06/16/20 06/16/20 04:37 04:42 04:47 Temperature Pulse Rate 61 67 70 Respiratory Rate Blood Pressure O2 Sat by Pulse 99 98 98 Oximetry 06/16/20 06/16/20 06/16/20 04:52 04:57 05:02 Temperature Pulse Rate 70 72 69 Respiratory Rate Blood Pressure O2 Sat by Pulse 98 98 98 Oximetry 06/16/20 06/16/20 06/16/20 05:07 05:12 05:17 Temperature Pulse Rate 70 63 65 Respiratory Rate Blood Pressure O2 Sat by Pulse 99 98 98 Oximetry 06/16/20 06/16/20 06/16/20 05:22 05:27 05:32 Temperature Pulse Rate 67 71 71 Respiratory Rate Blood Pressure O2 Sat by Pulse 99 98 99 Oximetry 06/16/20 06/16/20 06/16/20 05:37 05:38 05:42 Temperature Pulse Rate 75 98 H 63 Respiratory Rate Blood Pressure O2 Sat by Pulse 100 80 L 71 L Oximetry 06/16/20 06/16/20 06/16/20 05:43 05:47 05:52 Temperature Pulse Rate 74 62 66 Respiratory Rate Blood Pressure O2 Sat by Pulse 91 100 97 Oximetry 06/16/20 06/16/20 06/16/20 05:57 06:02 06:07 Temperature Pulse Rate 67 68 67 Respiratory Rate Blood Pressure O2 Sat by Pulse 97 98 98 Oximetry 06/16/20 06/16/20 06/16/20 06:12 06:15 06:17 Temperature Pulse Rate 76 77 70 Respiratory Rate Blood Pressure O2 Sat by Pulse 96 93 87 Oximetry 06/16/20 06/16/20 06/16/20 06:22 06:27 06:32 Temperature Pulse Rate 75 64 71 Respiratory Rate Blood Pressure O2 Sat by Pulse 99 99 97 Oximetry 06/16/20 06/16/20 06/16/20 06:37 06:42 06:44 Temperature Pulse Rate 62 74 78 Respiratory Rate Blood Pressure 103/58 O2 Sat by Pulse 97 97 90 Oximetry 06/16/20 06/16/20 06/16/20 06:46 06:47 06:52 Temperature 98.1 F Pulse Rate 66 66 Respiratory 18 Rate Blood Pressure O2 Sat by Pulse 100 97 Oximetry 06/16/20 06/16/20 06/16/20 06:57 07:02 07:07 Temperature Pulse Rate 70 68 73 Respiratory Rate Blood Pressure O2 Sat by Pulse 98 98 97 Oximetry - Exam Breasts: normal Cardiovascular: Regular rate, Normal S1, Normal S2 Lungs: Clear to auscultation Abdomen: Present: normal appearance, soft, normal bowel sounds. Absent: distention, tenderness Vulva: both: normal Uterus: Present: normal FHR: auscultation normal, category 1 Uterine Contraction Monitor Mode: External (toco zeroed and reapplied) Uterine Contraction Pattern: Irregular Uterine Tone Measurement Phase: Resting Extremities: normal Deep Tendon Reflex Grade: Normal +2 - Labs Labs: Abnormal Labs 06/12/20 06/13/20 06/15/20 03:10 14:06 15:46 WBC 12.4 H 18.7 H RBC 2.98 L 2.65 L Hgb 9.2 L 7.9 L Hct 26.9 L 23.7 L RDW 13.0 L Lymph % (Auto) 11.6 L [place] # 0.9 H Seg Neutrophils % 83.4 H Seg Neutrophils # 15.6 H Magnesium 4.70 H Laboratory Results - last 24 hr 06/15/20 06/15/20 15:00 15:46 WBC 18.7 H RBC 2.65 L Hgb 7.9 L Hct 23.7 L MCV 90 MCH 30 MCHC 34 RDW 13.5 Plt Count 248 Lymph % (Auto) 11.6 L [place] % (Auto) 4.7 Eos % (Auto) 0.1 Baso % (Auto) 0.2 Lymph # 2.2 [place] # 0.9 H Eos # 0.0 Baso # 0.0 Seg Neutrophils % 83.4 H Seg Neutrophils # 15.6 H Blood Type B POSITIVE Antibody Screen Negative
--- NOTE | 2020-06-16 08:48 | Progress Note ---
Assessment and Plan - Patient Problems (1) 33 weeks gestation of Onset Date: ~06/14/20 Current Visit: Yes Status: Acute (2) premature rupture of membranes Onset Date: ~06/14/20 Current Visit: Yes Status: Acute Qualifiers: PROM onset of labor timing: unspecified duration between rupture of membranes and onset of labor Qualified Code(s): O42.919 - premature rupture of membranes, unspecified as to length of time between rupture and onset of labor, unspecified trimester Plan to address problem: Patient informed of increase WBC's however no obvious evidence of infection, increase probably d/t steroids. Precautions given. She has not been out of her room since admission. Will allow shower and possibly trip to the garden in a wheelchair if Cat 1 fht's/+FM; no bleeding, no contractions Questions encouraged and answered. She voiced understanding and agrees with plan of care. Plan of care discussed with RN. Subjective - Subjective Date of service: 06/16/20 Principal diagnosis: IUP @ 33.6 wks with PPROM(2200 on 06-11-20); BMZ complete; ABX continue Patient reports: movement normal, no new complaints Objective - Vital Signs Vital Signs: Vital Signs - 12hr 06/15/20 06/15/20 06/15/20 20:45 20:48 20:52 Temperature Pulse Rate 92 H 107 H 81 Respiratory Rate Blood Pressure O2 Sat by Pulse 81 L 91 98 Oximetry 06/15/20 06/15/20 06/15/20 21:34 21:39 21:44 Temperature Pulse Rate 79 77 70 Respiratory Rate Blood Pressure O2 Sat by Pulse 98 98 98 Oximetry 06/15/20 06/15/20 06/15/20 21:46 21:49 21:54 Temperature Pulse Rate 67 69 66 Respiratory Rate Blood Pressure 110/55 O2 Sat by Pulse 99 99 Oximetry 06/15/20 06/15/20 06/15/20 21:59 22:00 22:04 Temperature 97.8 F Pulse Rate 76 81 Respiratory 18 Rate Blood Pressure O2 Sat by Pulse 99 99 Oximetry 06/15/20 06/15/20 06/15/20 22:09 22:14 22:19 Temperature Pulse Rate 62 65 73 Respiratory Rate Blood Pressure O2 Sat by Pulse 100 100 100 Oximetry 06/15/20 06/15/20 06/15/20 22:24 22:29 22:34 Temperature Pulse Rate 75 63 73 Respiratory Rate Blood Pressure O2 Sat by Pulse 99 99 100 Oximetry 06/15/20 06/15/20 06/15/20 22:39 22:44 22:47 Temperature Pulse Rate 68 70 66 Respiratory Rate Blood Pressure 101/56 O2 Sat by Pulse 100 99 Oximetry 06/15/20 06/15/20 06/15/20 22:49 22:51 22:57 Temperature Pulse Rate 75 65 80 Respiratory Rate Blood Pressure O2 Sat by Pulse 98 81 L 83 L Oximetry 06/15/20 06/15/20 06/15/20 23:04 23:05 23:10 Temperature Pulse Rate 66 78 Respiratory Rate Blood Pressure O2 Sat by Pulse 83 L 97 97 Oximetry 06/15/20 06/15/20 06/15/20 23:15 23:20 23:25 Temperature Pulse Rate 69 70 69 Respiratory Rate Blood Pressure O2 Sat by Pulse 98 98 100 Oximetry 06/15/20 06/15/20 06/15/20 23:30 23:35 23:40 Temperature Pulse Rate 75 68 72 Respiratory Rate Blood Pressure O2 Sat by Pulse 98 100 99 Oximetry 06/15/20 06/15/20 06/15/20 23:45 23:50 23:55 Temperature Pulse Rate 70 86 72 Respiratory Rate Blood Pressure O2 Sat by Pulse 98 98 99 Oximetry 06/16/20 06/16/20 06/16/20 00:00 00:05 00:10 Temperature Pulse Rate 73 75 73 Respiratory Rate Blood Pressure O2 Sat by Pulse 99 99 98 Oximetry 06/16/20 06/16/20 06/16/20 00:15 00:20 00:25 Temperature Pulse Rate 75 83 87 Respiratory Rate Blood Pressure O2 Sat by Pulse 98 98 96 Oximetry 06/16/20 06/16/20 06/16/20 00:26 00:30 00:34 Temperature Pulse Rate 88 77 81 Respiratory Rate Blood Pressure 118/67 O2 Sat by Pulse 87 99 Oximetry 06/16/20 06/16/20 06/16/20 00:35 00:40 00:45 Temperature Pulse Rate 76 78 77 Respiratory Rate Blood Pressure 117/66 O2 Sat by Pulse 98 98 98 Oximetry 06/16/20 06/16/20 06/16/20 00:50 00:55 01:00 Temperature Pulse Rate 73 82 90 Respiratory Rate Blood Pressure O2 Sat by Pulse 98 99 97 Oximetry 06/16/20 06/16/20 06/16/20 01:05 01:10 01:15 Temperature Pulse Rate 77 70 133 H Respiratory Rate Blood Pressure O2 Sat by Pulse 97 98 87 Oximetry 06/16/20 06/16/20 06/16/20 01:19 01:20 01:24 Temperature Pulse Rate 176 H 37 L 68 Respiratory Rate Blood Pressure O2 Sat by Pulse 85 81 L 99 Oximetry 06/16/20 06/16/20 06/16/20 01:29 01:34 01:39 Temperature Pulse Rate 77 83 71 Respiratory Rate Blood Pressure O2 Sat by Pulse 98 99 98 Oximetry 06/16/20 06/16/20 06/16/20 01:44 01:49 01:54 Temperature Pulse Rate 67 71 71 Respiratory Rate Blood Pressure O2 Sat by Pulse 97 98 98 Oximetry 06/16/20 06/16/20 06/16/20 01:59 02:04 02:09 Temperature Pulse Rate 68 74 73 Respiratory Rate Blood Pressure O2 Sat by Pulse 99 98 98 Oximetry 06/16/20 06/16/20 06/16/20 02:14 02:19 02:24 Temperature Pulse Rate 72 72 73 Respiratory Rate Blood Pressure O2 Sat by Pulse 97 97 97 Oximetry 06/16/20 06/16/20 06/16/20 02:29 02:34 02:39 Temperature Pulse Rate 73 74 72 Respiratory Rate Blood Pressure O2 Sat by Pulse 97 97 97 Oximetry 06/16/20 06/16/20 06/16/20 02:44 02:49 02:54 Temperature Pulse Rate 76 61 71 Respiratory Rate Blood Pressure O2 Sat by Pulse 97 97 97 Oximetry 06/16/20 06/16/20 06/16/20 02:59 03:12 03:17 Temperature Pulse Rate 73 47 L 60 Respiratory Rate Blood Pressure O2 Sat by Pulse 98 96 98 Oximetry 06/16/20 06/16/20 06/16/20 03:22 03:27 03:32 Temperature Pulse Rate 66 63 71 Respiratory Rate Blood Pressure O2 Sat by Pulse 98 98 98 Oximetry 06/16/20 06/16/20 06/16/20 03:37 03:42 03:47 Temperature Pulse Rate 67 62 64 Respiratory Rate Blood Pressure O2 Sat by Pulse 98 99 97 Oximetry 06/16/20 06/16/20 06/16/20 03:52 03:57 04:02 Temperature Pulse Rate 63 61 75 Respiratory Rate Blood Pressure O2 Sat by Pulse 97 97 97 Oximetry 06/16/20 06/16/20 06/16/20 04:07 04:12 04:17 Temperature Pulse Rate 61 65 70 Respiratory Rate Blood Pressure O2 Sat by Pulse 98 98 98 Oximetry 06/16/20 06/16/20 06/16/20 04:22 04:27 04:32 Temperature Pulse Rate 63 67 72 Respiratory Rate Blood Pressure O2 Sat by Pulse 98 98 98 Oximetry 06/16/20 06/16/20 06/16/20 04:37 04:42 04:47 Temperature Pulse Rate 61 67 70 Respiratory Rate Blood Pressure O2 Sat by Pulse 99 98 98 Oximetry 06/16/20 06/16/20 06/16/20 04:52 04:57 05:02 Temperature Pulse Rate 70 72 69 Respiratory Rate Blood Pressure O2 Sat by Pulse 98 98 98 Oximetry 06/16/20 06/16/20 06/16/20 05:07 05:12 05:17 Temperature Pulse Rate 70 63 65 Respiratory Rate Blood Pressure O2 Sat by Pulse 99 98 98 Oximetry 06/16/20 06/16/20 06/16/20 05:22 05:27 05:32 Temperature Pulse Rate 67 71 71 Respiratory Rate Blood Pressure O2 Sat by Pulse 99 98 99 Oximetry 06/16/20 06/16/20 06/16/20 05:37 05:38 05:42 Temperature Pulse Rate 75 98 H 63 Respiratory Rate Blood Pressure O2 Sat by Pulse 100 80 L 71 L Oximetry 06/16/20 06/16/20 06/16/20 05:43 05:47 05:52 Temperature Pulse Rate 74 62 66 Respiratory Rate Blood Pressure O2 Sat by Pulse 91 100 97 Oximetry 06/16/20 06/16/20 06/16/20 05:57 06:02 06:07 Temperature Pulse Rate 67 68 67 Respiratory Rate Blood Pressure O2 Sat by Pulse 97 98 98 Oximetry 06/16/20 06/16/20 06/16/20 06:12 06:15 06:17 Temperature Pulse Rate 76 77 70 Respiratory Rate Blood Pressure O2 Sat by Pulse 96 93 87 Oximetry 06/16/20 06/16/20 06/16/20 06:22 06:27 06:32 Temperature Pulse Rate 75 64 71 Respiratory Rate Blood Pressure O2 Sat by Pulse 99 99 97 Oximetry 06/16/20 06/16/20 06/16/20 06:37 06:42 06:44 Temperature Pulse Rate 62 74 78 Respiratory Rate Blood Pressure 103/58 O2 Sat by Pulse 97 97 90 Oximetry 06/16/20 06/16/20 06/16/20 06:46 06:47 06:52 Temperature 98.1 F Pulse Rate 66 66 Respiratory 18 Rate Blood Pressure O2 Sat by Pulse 100 97 Oximetry 06/16/20 06/16/20 06/16/20 06:57 07:02 07:07 Temperature Pulse Rate 70 68 73 Respiratory Rate Blood Pressure O2 Sat by Pulse 98 98 97 Oximetry 06/16/20 06/16/20 06/16/20 07:12 07:17 07:22 Temperature Pulse Rate 80 78 68 Respiratory Rate Blood Pressure O2 Sat by Pulse 98 95 99 Oximetry 06/16/20 06/16/20 06/16/20 07:27 07:32 07:37 Temperature Pulse Rate 76 65 69 Respiratory Rate Blood Pressure O2 Sat by Pulse 98 98 98 Oximetry 06/16/20 06/16/20 06/16/20 07:41 07:42 07:47 Temperature Pulse Rate 65 71 64 Respiratory Rate Blood Pressure 97/55 O2 Sat by Pulse 99 97 Oximetry 06/16/20 06/16/20 06/16/20 07:52 07:57 08:02 Temperature Pulse Rate 84 82 73 Respiratory Rate Blood Pressure O2 Sat by Pulse 95 99 100 Oximetry 06/16/20 06/16/20 06/16/20 08:07 08:12 08:17 Temperature Pulse Rate 67 66 70 Respiratory Rate Blood Pressure O2 Sat by Pulse 97 97 97 Oximetry 06/16/20 08:22 Temperature Pulse Rate 72 Respiratory Rate Blood Pressure O2 Sat by Pulse 98 Oximetry - Exam Narrative Exam: Patient resting in bed, alert and appropriately responsive. No pain now, noted some abdominal pain last pm with movement. No bleeding. Breasts: deferred Cardiovascular: Regular rate Lungs: Clear to auscultation, Normal air movement Abdomen: Present: soft. Absent: tenderness Uterus: Present: fundal height above umbilicus. Absent: tenderness FHR: category 1 Uterine Contraction Monitor Mode: External Uterine Contraction Pattern: Irregular Extremities: normal (CD's placed) - Labs Labs: Abnormal Labs 06/12/20 06/13/2020 03:10 14:06 15:46 WBC 12.4 H 18.7 H RBC 2.98 L 2.65 L Hgb 9.2 L 7.9 L Hct 26.9 L 23.7 L RDW 13.0 L Lymph % (Auto) 11.6 L [place] # 0.9 H Seg Neutrophils % 83.4 H Seg Neutrophils # 15.6 H Magnesium 4.70 H Laboratory Results - last 24 hr 06/15/20 06/15/20 15:00 15:46 WBC 18.7 H RBC 2.65 L Hgb 7.9 L Hct 23.7 L MCV 90 MCH 30 MCHC 34 RDW 13.5 Plt Count 248 Lymph % (Auto) 11.6 L [place] % (Auto) 4.7 Eos % (Auto) 0.1 Baso % (Auto) 0.2 Lymph # 2.2 [place] # 0.9 H Eos # 0.0 Baso # 0.0 Seg Neutrophils % 83.4 H Seg Neutrophils # 15.6 H Blood Type B POSITIVE Antibody Screen Negative
[2020-06-16] MEDS ORDERED: ACETAMINOPHEN 325 MG TAB PO PRN (10:00)
[2020-06-16] MEDS: PRENATAL VIT27-FE FUMARATE-FOLIC ACID VIT TAB PO SCH (10:38)
[2020-06-16] MEDS: FERROUS SULFATE 325 MG TAB PO SCH (10:38)
[2020-06-16] MEDS ORDERED: ERYTHROMYCIN BASE 250 MG CAPSULE DR PO SCH (14:00)
[2020-06-16] MEDS ORDERED: ZOLPIDEM 5 MG TAB PO PRN (22:00)
[2020-06-17] MEDS: AMOXICILLIN 250 MG CAP PO SCH (06:08)
[2020-06-17] MEDS ORDERED: LIDOCAINE (2%) 20 MG/1 ML VIAL 20 ML MDV INFILTRATI ONE (08:36)
[2020-06-17] MEDS ORDERED: OXYTOCIN 10 UNIT/1 ML INJ IM PRN (08:36)
[2020-06-17] MEDS ORDERED: ONDANSETRON 4 MG/2 ML INJ IV PRN ×2 (08:36→09:25)
[2020-06-17] MEDS ORDERED: fentaNYL 100 MCG/2 ML INJ IV PRN (08:36)
[2020-06-17] MEDS ORDERED: BUTORPHANOL 2 MG/1 ML INJ IV PRN (08:36)
[2020-06-17] MEDS ORDERED: miSOPROStol 200 MCG TAB PR PRN (08:36)
[2020-06-17] MEDS ORDERED: MINERAL OIL 30 ML ORAL LIQD PO PRN (08:36)
[2020-06-17] MEDS ORDERED: METHYLERGONOVINE MALEATE 0.2 MG/ML VIAL IM PRN (08:36)
[2020-06-17] MEDS ORDERED: CARBOPROST TROMETHAMINE 250 MCG/1 ML INJ IM PRN (08:36)
--- NOTE | 2020-06-17 08:46 | Progress Note ---
Assessment and Plan patient crying with c/o painful contractions, SVE now 5/80/-1, cephalic. Will now treat patient as labor, labor order set added in EMR. no abdominal tenderness, clear fluid without odor. afebrile. Pt may have epidural PRN and IV sedation as needed. Dr. Mitchell updated on patient's status. primary RN Calista, AMADEO Santiago and NICU aware of patient's change in status. - Patient Problems (1) premature rupture of membranes Onset Date: ~06/14/20 Current Visit: Yes Status: Acute Qualifiers: PROM onset of labor timing: unspecified duration between rupture of membranes and onset of labor Qualified Code(s): O42.919 - premature rupture of membranes, unspecified as to length of time between rupture and onset of labor, unspecified trimester (2) 34 weeks gestation of Current Visit: Yes Status: Acute (3) labor in third trimester Current Visit: Yes Status: Acute Subjective - Subjective Principal diagnosis: IUP @ 34+0 wks with PPROM(2200 on 06-11-20); BMZ complete; ABX continue Patient reports: new complaints (painful contractions), movement normal, contractions Objective - Vital Signs Vital Signs: Vital Signs - 12hr 06/16/20 06/17/20 06/17/20 22:00 00:01 02:00 Temperature 98.3 F 98.2 F 98.5 F Pulse Rate 62 Respiratory 18 Rate Blood Pressure 99/55 06/17/20 06:04 Temperature 98.1 F Pulse Rate Respiratory Rate Blood Pressure - Exam Breasts: normal Cardiovascular: Regular rate Lungs: Clear to auscultation, Normal air movement Abdomen: Present: normal appearance, soft Vulva: both: normal Uterus: Present: normal, fundal height above umbilicus FHR: category 1 Uterine Contraction Monitor Mode: External Cervical Dilatation: 5 Cervical Effacement Percentage: 80 station: -1 Uterine Contraction Pattern: Irregular Uterine Tone Measurement Phase: Contraction Uterine Contraction Intensity: Moderate Extremities: normal - Labs Labs: Abnormal Labs 06/12/20 06/13/20 06/15/20 03:10 14:06 15:46 WBC 12.4 H 18.7 H RBC 2.98 L 2.65 L Hgb 9.2 L 7.9 L Hct 26.9 L 23.7 L RDW 13.0 L Lymph % (Auto) 11.6 L [place] # 0.9 H Seg Neutrophils % 83.4 H Seg Neutrophils # 15.6 H Magnesium 4.70 H
[2020-06-17] MEDS ORDERED: AMPICILLIN/NS 2 GM/100 ML 2 GM/100 ML BAG IV ONE (09:00)
[2020-06-17] MEDS ORDERED: ePHEDrine SULFATE 50 MG/1 ML INJ IV PRN (09:25)
[2020-06-17] MEDS ORDERED: NalbUPHINE 10 MG/1 ML INJ IV PRN (09:25)
[2020-06-17] MEDS ORDERED: diphenhydrAMINE 50 MG/ML VIAL IV PRN (09:25)
[2020-06-17] MEDS ORDERED: NALOXONE 2 MG/2 ML INJ IV PRN (09:25)
[2020-06-17] MEDS: LACTATED RINGERS 1,000 ML IV SCH ×2 (09:39→11:43)
[2020-06-17] MEDS ORDERED: DEXMEDETOMIDINE 200 MCG/2 ML VIAL IV ONE (09:47)
[2020-06-17] MEDS ORDERED: fentaNYL-BUPIV 2 MCG/ML-0.125% 200 MCG/100 ML BAG EPIDURAL SCH (10:00)
--- NOTE | 2020-06-17 10:46 | Anesthesia Consultation ---
Anesthesia Consult and Med Hx Date of service: 06/17/20 - Airway Anesthetic Teeth Evaluation: Good ROM Head & Neck: Adequate Mental/Hyoid Distance: Adequate Mallampati Class: Class II Intubation Access Assessment: Good - Pulmonary Exam CTA: Yes - Cardiac Exam Cardiac Exam: RRR - Pre-Operative Health Status ASA Pre-Surgery Classification: ASA2 Proposed Anesthetic Plan: Epidural - Pulmonary Hx Smoking: No (former) Hx Asthma: Yes Hx Sleep Apnea: No - Cardiovascular System Hx Hypertension: No Hx Heart Attack/AMI: No - Central Nervous System Hx Neuromuscular Disorder: No Hx Seizures: No CVA: No Hx Back Pain: No Hx Psychiatric Problems: No - Gastrointestinal Hx Gastroesophageal Reflux Disease: No - Endocrine Hx Renal Disease: No Hx Liver Disease: No Hx Insulin Dependent Diabetes: No Hx Thyroid Disease: No Hx Hypothyroidism: No Hx Hyperthyroidism: No - Hematic Hx Anemia: No Hx Sickle Cell Disease: No - Other Systems Hx Alcohol Use: No
--- NOTE | 2020-06-17 10:49 | Progress Note ---
Labor Epidural - Labor Epidural Start Time: 10:27 Stop Time: 10:37 Performed by:: COTY LYNCH Procedure: Patient is requesting a laboring epidural for laboring pain. Patient IDed, H&P reviewed, all questions and concerns were answered, and consent was signed. Timeout was performed at bedside. Patient in sitting position. Sterile prep and drape was performed. 3ml of 1% lidocaine skin wheal at L[3]- L [4]. 18- gauge Touhy epidural needle was advanced to loss of resistance at 6cm with air technique. Negative CSF negative blood. Epidural catheter advanced to [12] centimeters. [-] Aspiration [-] test dose. Sterile dressing applied. Patient tolerated procedure.
[2020-06-17] MEDS: PRENATAL VIT27-FE FUMARATE-FOLIC ACID VIT TAB PO SCH (10:52)
--- NOTE | 2020-06-17 13:17 | Progress Note ---
Assessment and Plan patient comfortable with epidural, forebag noted and ruptured. clear odorless fluid noted. anticipate vaginal . - Patient Problems (1) premature rupture of membranes Onset Date: ~06/14/20 Current Visit: Yes Status: Acute Qualifiers: PROM onset of labor timing: unspecified duration between rupture of membranes and onset of labor Qualified Code(s): O42.919 - premature rupture of membranes, unspecified as to length of time between rupture and onset of labor, unspecified trimester (2) 34 weeks gestation of Current Visit: Yes Status: Acute (3) labor in third trimester Current Visit: Yes Status: Acute Subjective - Subjective Date of service: 06/17/20 Principal diagnosis: IUP @ 34+0 wks with PPROM(2200 on 06-11-20); BMZ complete; ABX continue Patient reports: new complaints (comfortablw with epidural) Objective - Vital Signs Vital Signs: Vital Signs - 12hr 06/17/20 06/17/20 06/17/20 02:00 06:04 09:30 Temperature 98.5 F 98.1 F 98.3 F Pulse Rate Respiratory 20 Rate Blood Pressure O2 Sat by Pulse Oximetry 06/17/20 06/17/20 06/17/20 09:31 10:25 10:30 Temperature Pulse Rate 59 L 60 68 Respiratory Rate Blood Pressure 115/57 O2 Sat by Pulse 97 100 Oximetry 06/17/20 06/17/20 06/17/20 10:35 10:37 10:39 Temperature Pulse Rate 65 56 L 65 Respiratory Rate Blood Pressure 114/62 114/59 O2 Sat by Pulse 100 Oximetry 06/17/20 06/17/20 06/17/20 10:40 10:41 10:43 Temperature Pulse Rate 83 72 67 Respiratory Rate Blood Pressure 114/58 113/61 O2 Sat by Pulse 100 Oximetry 06/17/20 06/17/20 06/17/20 10:45 10:47 10:49 Temperature Pulse Rate 63 63 68 Respiratory Rate Blood Pressure 112/64 117/58 113/58 O2 Sat by Pulse 100 Oximetry 06/17/20 06/17/20 06/17/20 10:50 10:55 11:00 Temperature Pulse Rate 62 62 62 Respiratory Rate Blood Pressure 114/61 119/65 O2 Sat by Pulse 100 100 100 Oximetry 06/17/20 06/17/20 06/17/20 11:05 11:10 11:15 Temperature Pulse Rate 66 61 61 Respiratory Rate Blood Pressure 116/70 119/63 O2 Sat by Pulse 100 100 100 Oximetry 06/17/20 06/17/20 06/17/20 11:16 11:20 11:25 Temperature Pulse Rate 60 56 L 60 Respiratory Rate Blood Pressure 119/66 116/64 113/64 O2 Sat by Pulse 100 100 Oximetry 06/17/20 06/17/20 06/17/20 11:30 11:35 11:36 Temperature Pulse Rate 66 62 57 L Respiratory Rate Blood Pressure 113/61 123/72 O2 Sat by Pulse 100 93 Oximetry 06/17/20 06/17/20 06/17/20 11:40 11:41 11:45 Temperature Pulse Rate 56 L 54 L 60 Respiratory Rate Blood Pressure 117/83 O2 Sat by Pulse 100 100 Oximetry 06/17/20 06/17/20 06/17/20 11:50 11:51 11:55 Temperature Pulse Rate 56 L 53 L 54 L Respiratory Rate Blood Pressure 113/60 O2 Sat by Pulse 100 100 Oximetry 06/17/20 06/17/20 06/17/20 11:57 12:00 12:05 Temperature Pulse Rate 56 L 55 L 52 L Respiratory Rate Blood Pressure 116/56 107/56 O2 Sat by Pulse 100 100 Oximetry 06/17/20 06/17/20 06/17/20 12:10 12:15 12:16 Temperature Pulse Rate 58 L 57 L 59 L Respiratory Rate Blood Pressure 105/61 O2 Sat by Pulse 100 99 Oximetry 06/17/20 06/17/20 06/17/20 12:20 12:31 12:48 Temperature Pulse Rate 55 L 77 57 L Respiratory Rate Blood Pressure 108/64 106/54 O2 Sat by Pulse 99 Oximetry 06/17/20 06/17/20 13:01 13:06 Temperature Pulse Rate 59 L 54 L Respiratory Rate Blood Pressure 118/67 O2 Sat by Pulse 69 L Oximetry - Exam Breasts: normal Cardiovascular: Regular rate Lungs: Normal air movement Abdomen: Present: normal appearance, soft Vulva: both: normal (labia swollen) Uterus: Present: normal, fundal height above umbilicus FHR: category 1 Uterine Contraction Monitor Mode: External Cervical Dilatation: 7 Cervical Effacement Percentage: 80 station: 0 Uterine Contraction Frequency (min): 3 Uterine Contraction Duration: 60 Uterine Contraction Pattern: Regular Uterine Tone Measurement Phase: Contraction Uterine Contraction Intensity: Moderate Extremities: normal Deep Tendon Reflex Grade: Normal +2 - Labs Labs: Abnormal Labs 06/12/20 06/13/20 06/15/20 03:10 14:06 15:46 WBC 12.4 H 18.7 H RBC 2.98 L 2.65 L Hgb 9.2 L 7.9 L Hct 26.9 L 23.7 L RDW 13.0 L Lymph % (Auto) 11.6 L [place] # 0.9 H Seg Neutrophils % 83.4 H Seg Neutrophils # 15.6 H Magnesium 4.70 H
[2020-06-17] MEDS ORDERED: AMPICILLIN/NS 1 GM/50 ML 1 GM/50 ML BAG IV SCH (14:00)
--- NOTE | 2020-06-17 14:57 | Procedure Note ---
OB Delivery Note - Delivery Date of Delivery: 06/17/20 ( female) Mill Operator: YANET XAVIER Estimated blood loss: 200cc - Vaginal Delivery presentation: vertex Delivery position: OA Intrapartum events: labor-<37 weeks, PROM->1hr before delivery Delivery induction: none Delivery monitor: external FHT, external uterine Route of delivery: Episiotomy: none Anesthesia: epidural Delivery comments: female born over intact perineum, NACHO. cord clamped and cut, handed off to awaiting NICU team. Placenta del intact and complete - sent to pathology (PPROM and short cord.) Pit to IVF. no lacerations to repair. EBL 200. apgars 8/9. wt 5#4oz. Baby to NICU, mother stable. Counts correct. - A at 1 minute: 8 at 5 minutes: 9 Gender: Female (5#4oz)
[2020-06-17] MEDS: FERROUS SULFATE 325 MG TAB PO SCH (16:24)
[2020-06-17] MEDS ORDERED: PROMETHAZINE 25 MG TAB PO PRN (17:41)
[2020-06-17] MEDS ORDERED: BENZOCAINE/MENTHOL 20/0.5% TOP SPRAY 56 GM TP PRN (17:41)
[2020-06-17] MEDS ORDERED: OXYTOCIN 20 UNIT/1000ML DRIP 20 UNITS/1,000 ML BAG IV SCH (17:41)
[2020-06-17] MEDS ORDERED: LANOLIN/ZINC/DIMETHICONE (LANSINOH) 7 GM TP PRN (17:41)
[2020-06-17] MEDS ORDERED: diphenhydrAMINE 25 MG CAP PO PRN (17:41)
[2020-06-17] MEDS ORDERED: WITCH HAZEL/ GLYCERIN PAD TP PRN (17:41)
[2020-06-17] MEDS ORDERED: ACETAMINOPHEN 325 MG TAB PO PRN (17:41)
[2020-06-17] MEDS ORDERED: MAGNESIUM HYDROXIDE (MOM) ORAL LIQD UDC PO PRN (17:41)
[2020-06-17] MEDS: IBUPROFEN 800 MG TAB PO SCH (18:30)
[2020-06-18 05:54] LABS: Hematocrit 25.1 % (30.3-42.9); Hemoglobin 8.5 gm/dl (10.1-14.3)
[2020-06-18] MEDS: IBUPROFEN 800 MG TAB PO SCH ×2 (07:14→15:35)
--- NOTE | 2020-06-18 08:13 | Post Anesthesia Evaluation ---
- Post Anesthesia Evaluation Patient Participated: Yes Airway Patent: Yes Stable Respiratory Function: Yes Nausea/Vomiting: No Temp > 96.8F: Yes Pain Manageable: Yes Adequeate Hydration: Yes Anesthesia Complications: No Block Receding Appropriately: Yes Patient on Ventilator: No
--- NOTE | 2020-06-18 09:13 | Event Note ---
Date: 06/18/20 (Pt not in room) Went to go check on pt and she is not in room. Will come back to speak and evaluate patient when she comes back to the room.
--- NOTE | 2020-06-18 09:41 | Discharge Summary ---
Providers - Providers Date of Admission: 06/15/20 11:50 Date of discharge: 06/18/20 (Pt has a very strong desire to go home.) Attending physician: JOLANTA LUONG Primary care physician: JOLANTA LUONG Hospitalization Reason for admission: rupture of membranes ( premature rupture of membranes) Delivery: Episiotomy: none Laceration: none Other procedures: none complications: none Discharge diagnosis: delivery [place] baby: female Hospital course: S: Pt doing very well. Has a very strong desire to go home. Voiding, ambulating, and passing flatus without difficulty. BC: Mirena. O: VSS. Fundus firm, minimal bleeding noted. H/H 8.5/25.1, asymptomatic. Adequate I&Os. A: 25 y.o. s/p @ 34 wks after PPROM. Asymptomatic anemia after delivery, stable for discharge home. P; Discharge home with instructions. To schedule a visit in 4 weeks. To take iron as prescribed. Condition at discharge: Good Disposition: [id number] TO HOME OR SELFCARE Plan - Discharge Medications Prescriptions: Ferrous Sulfate [Feosol 325 MG tab] 325 mg PO QDAY #60 tablet - Provider Discharge Summary Activity: routine, no sex for 6 weeks, no heavy lifting 4 weeks, no strenuous exercise Diet: routine Instructions: routine Additional instructions: [] Smoking cessation referral if applicable(refer to patient education folder for contact #) [] Refer to [facility] Booklet Call your doctor immediately for: * Fever > 100.5 * Heavy vaginal bleeding ( >1 pad per hour) * Severe persistent headache * Shortness of breath * Reddened, hot, painful area to leg or breast * Drainage or odor from incision. * Keep incision clean and dry at all times and follow doctor's instructions regarding bathing/showering - Follow up plan Follow up: JOLANTA LUONG MD [Primary Care Provider] - 7 Days (Congratulations on your baby girl!!! Please schedule a visit in 4 weeks with the office. If you have any questions or concerns, please do not hesitate to call the office at [phone]. ) Forms: [facility] Discharge Summary
[2020-06-18 16:12] VITALS: BP 112/75
== END 2020-06-18 16:13 | disposition home or self-care (01) | DRG 775 ==
LOC: TRG 00:41 → APU 00:42 → TRG 03:10 → UNDOADMIN 03:11 → LD 03:11 → OB 06-17 17:16
PROVIDERS: ADMIT Obstetrics & Gynecology; ATTEND Obstetrics & Gynecology
PROC: 10E0XZZ Delivery of Products of Conception, External Approach (ICD-10-PCS; principal; 2020-06-17)
PROC: 3E0R3BZ Introduction of Anesthetic Agent into Spinal Canal, Percutaneous Approach (ICD-10-PCS; 2020-06-17)
PROC: 00HU33Z Insertion of Infusion Device into Spinal Canal, Percutaneous Approach (ICD-10-PCS; 2020-06-17)
DX: O42.913 Preterm premature rupture of membranes, unspecified as to length of time between rupture and onset of labor, third trimester (principal); Z37.0 Single live birth; O60.14X0 Preterm labor third trimester with preterm delivery third trimester, not applicable or unspecified; O99.52 Diseases of the respiratory system complicating childbirth; J45.909 Unspecified asthma, uncomplicated; Z87.891 Personal history of nicotine dependence; O90.81 Anemia of the puerperium; D64.9 Anemia, unspecified; Z3A.33 33 weeks gestation of pregnancy
CPT/HCPCS: 36415; 76815; 76816; 76819; 83735; 85014; 85018; 85025; 85027; 86592; 86850; 86900; 86901; 87116; G0378; J0290; J0702; J1364; J2590; J3475; J3490; J7120